=== PATIENT | female | born 2000 | race Caucasian/White ===

== ENCOUNTER 2024-02-24 18:04 | Emergency (ER) | payer OTHER, SELFPAY ==
--- NOTE | ~2024-02-24 | CT_ITS ---
History: 23-year-old woman with diplopia 48 hours earlier PROCEDURE: CT head without contrast. COMPARISON: None TECHNIQUE: Axial imaging of the head performed from the skull base to the vertex without IV contrast. Sagittal a nd coronal reformations obtained. DLP: 605 mGy-cm FINDINGS: The ventricles are normal in size, shape and position. There is no mass, mass effect or midline shift. There is no abnormal extra-axial fluid collection or intracranial hemorrhage. Visualized paranasal sinuses are clear. The mastoid air cells are well aerated. No acute displaced fractures within the overlying cranium. Impression: No acute intracranial hemorrhage or suspicious mass effect. Reviewed, dictated and finalized at location A. R [facility] Impression: No acute intracranial hemorrhage or suspicious mass effect.
--- NOTE | 2024-02-24 18:25 | ED.GENADULT ---
HPI - General Adult General Chief complaint: Unspecified Stated complaint: double vision since Thursday Time Seen by Provider: 02/24/24 18:09 Source: patient and family (father) Mode of arrival: ambulatory Limitations: no limitations History of Present Illness HPI narrative: Patient presents with complaint of blurred double vision since Thursday morning. She tried to put in her contacts but it did not improve. Similarly it occurs when she tries to wear her glasses. It is also present without wearing these adjuncts. She states it is not quite 2 distinct objects but does appear like the object is partially recreated. Her prescription in looking at her contact lens boxes is R (-)4.25 and L (-)3.75 ; these are new and her new glasses prescription as well. This change was made approximately 3 weeks ago. She had used the new glasses and some of the other contact lenses in the week or two prior to this without any issue. She denies any eye pain. She states they were slightly red and itchy this morning and she had a little bit of crusting but no discharge or matted eyelashes. Has had a mild head cold. She believes her eye doctor is an assistant site manager rather than an jacquard card lacer but she is not certain; has an appointment with them tomorrow. This has never happened before. She has been diagnosed with astigmatism. Had a headache Thursday. No slurred speech, other unilateral symptoms. Denies the images being above and slightly to the side of one another. States it is worse with distance. No trauma/injury. Has an appointment with her eye doctor tomorrow. Related Data Allergies Allergy/AdvReac Type Severity Reaction Status Date / Time No Known Allergies Allergy Mild Verified 02/24/24 18:04 Exam Narrative: GENERAL: Well-appearing, well-nourished, and in no acute distress. HEAD: Normocephalic, atraumatic. EYES: Non injected, non icteric. Visual acuity 20/20 (left), 20/30 (right), 20/15 together. No ptosis or proptosis. There is slight asymmetry to the alignment of her eyes but eye is not down and out. Full extraocular movements intact (horizontal/vertical and at the corners superiorly and inferiorly) without nystagmus or restriction. PERRL; no APD. With her right eye covered, her left eye vision is normal. With her left eye covered, the blurred vision is still present with the right eye open. ENT: Nares clear, no rhinorrhea or epistaxis. NECK: Supple. No meningismus CHEST: Speaking in full sentences. No respiratory distress. HEART: Regular rate and rhythm. . ABDOMEN: Soft, nondistended. EXTREMITIES: Normal range of motion. No lower extremity edema. SKIN: Warm, dry, no rash. NEURO: No focal deficits. Alert and oriented x3. PSYCH: Normal mood and affect. Course Vital Signs Vital signs: Vital Signs Temperature 97.8 F 02/24/24 18:38 Pulse Rate 86 02/24/24 18:38 Respiratory Rate 17 02/24/24 18:38 Blood Pressure 136/98 H 02/24/24 18:38 Pulse Oximetry 100 02/24/24 18:38 Oxygen Delivery Room Air 02/24/24 18:38 Temperature 98.7 F 02/24/24 20:20 Pulse Rate 88 02/24/24 20:20 Respiratory Rate 18 02/24/24 20:20 Blood Pressure 130/67 02/24/24 20:20 Pulse Oximetry 100 02/24/24 20:20 Oxygen Delivery Room Air 02/24/24 18:38 Medical Decision Making [facility] Narrative Medical decision making narrative: Patient presents with diplopia and slightly blurred vision. In the ED she is afebrile with vital signs initially notable for hypertension, likely attributed to being scared/nervous. DIFFERENTIAL DIAGNOSIS Diplopia Monocular (1 eye only, continues when other eye covered) = Astigmatism, cataracts, lens dislocation Binocular (misalignment stops if other eye covered) = Entrapment, CN palsy, intracranial mass effect, thyroid disease, microvascular disease Patient has a history of astigmatism however With her right eye covered, her left eye vision is normal. With her left eye covered, the blurred vision is still present with the right eye open. This is concerning for binocular diplopia. There is no entrapment appreciated on physical exam. States it is also slightly worse with distance thus considered Cranial Nerve 6 palsy. Will obtain head ct and thyroid test. Unremarkable work up. Patient has an appointment to see her eye doctor tomorrow morning. Discharged in stable condition for further assessment and investigation. Vital Signs Vital Signs: Vital Signs Temperature 97.8 F 02/24/24 18:38 Pulse Rate 86 02/24/24 18:38 Respiratory Rate 17 02/24/24 18:38 Blood Pressure 136/98 H 02/24/24 18:38 Pulse Oximetry 100 02/24/24 18:38 Oxygen Delivery Room Air 02/24/24 18:38 Temperature 98.7 F 02/24/24 20:20 Pulse Rate 88 02/24/24 20:20 Respiratory Rate 18 02/24/24 20:20 Blood Pressure 130/67 02/24/24 20:20 Pulse Oximetry 100 02/24/24 20:20 Oxygen Delivery Room Air 02/24/24 18:38 Lab Data Labs: Lab Results 02/24/24 Range/Units 19:17 TSH 3.320 (0.465-4.680) uIU/mL Imaging Data Radiologist's impression: Impressions Head CT 02/24/24 19:12 Impression: No acute intracranial hemorrhage or suspicious mass effect. Discharge Plan Discharge Clinical Impression: Diplopia Patient Disposition: Home, Self-Care Condition: Stable Instructions: Antibiotic Form, Diplopia (ED) Additional Instructions: Your CT scan and thyroid test were normal. Keep your appointment with her eye doctor tomorrow morning. Return to the emergency department with any new or worsening symptoms. Follow-up/Referrals: Dieudonne Diggs MD [Physician] - Stand Alone Forms: Work/School Release IP Time of Disposition: 20:12
[2024-02-24 18:38] VITALS: BP 136/98; PULSE 86; RESP 17; TEMP 36.6; O2SAT 100
[2024-02-24 20:20] VITALS: BP 130/67; PULSE 88; RESP 18; TEMP 37.1; O2SAT 100
== END 2024-02-24 20:21 | disposition home or self-care (01) ==
PROVIDERS: Emergency Provider Student in an Organized Health Care Education/Training Program
DX: H53.2 Diplopia (principal)
CPT/HCPCS: 36415; 70450; 84443; 99284